=== PATIENT | female | born 1935 | race Caucasian/White ===

== ENCOUNTER 2022-08-19 10:31 | Day surgery (SDC) | payer OTHER ==
[2022-08-19] MEDS ORDERED: IRON SUCROSE INJECTION 200 MG in SODIUM CHLORIDE 100 ML IVPB ONE (11:00)
[2022-08-19 12:29] VITALS: BP 135/49; PULSE 67; RESP 18; TEMP 97.9
== END 2022-08-19 12:29 | disposition home or self-care (01) ==
LOC: FM/S 10:31 → FINFUSION 10:31
PROVIDERS: ATTEND Family Medicine
PROC: 3E033GC Introduction of Other Therapeutic Substance into Peripheral Vein, Percutaneous Approach (ICD-10-PCS; principal; 2022-08-19)
DX: D50.9 Iron deficiency anemia, unspecified (principal)
CPT/HCPCS: 96365; J1756

== ENCOUNTER 2022-08-26 09:33 | Day surgery (SDC) | payer OTHER ==
[2022-08-26] MEDS ORDERED: IRON SUCROSE INJECTION 200 MG in SODIUM CHLORIDE 100 ML IVPB ONE (10:00)
[2022-08-26 10:15] VITALS: RESP 18; TEMP 98.1
[2022-08-26 10:53] VITALS: BP 117/47; PULSE 52
== END 2022-08-26 10:53 | disposition home or self-care (01) ==
LOC: FINFUSION 09:33 → FM/S 09:33 → FINFUSION 10:53
PROVIDERS: ATTEND Family Medicine
PROC: 3E033GC Introduction of Other Therapeutic Substance into Peripheral Vein, Percutaneous Approach (ICD-10-PCS; principal; 2022-08-26)
DX: D50.9 Iron deficiency anemia, unspecified (principal)
CPT/HCPCS: 96365; J1756

== ENCOUNTER 2022-09-02 10:38 | Day surgery (SDC) | payer OTHER ==
[2022-09-02] MEDS ORDERED: IRON SUCROSE INJECTION 200 MG in SODIUM CHLORIDE 100 ML IVPB ONE (11:15)
[2022-09-02 11:43] VITALS: RESP 18; TEMP 98.3
[2022-09-02 12:23] VITALS: BP 122/55; PULSE 60
== END 2022-09-02 12:55 | disposition home or self-care (01) ==
LOC: FINFUSION 10:38 → FM/S 10:44 → FINFUSION 12:55
PROVIDERS: ATTEND Family Medicine
PROC: 3E033GC Introduction of Other Therapeutic Substance into Peripheral Vein, Percutaneous Approach (ICD-10-PCS; principal; 2022-09-02)
DX: D50.9 Iron deficiency anemia, unspecified (principal)
CPT/HCPCS: 96365; J1756

== ENCOUNTER 2022-09-09 09:06 | Day surgery (SDC) | payer OTHER ==
[2022-09-09] MEDS ORDERED: IRON SUCROSE INJECTION 200 MG in SODIUM CHLORIDE 100 ML IVPB ONE (09:30)
[2022-09-09 11:42] VITALS: BP 140/60; PULSE 68; RESP 18; TEMP 97.7
== END 2022-09-09 12:23 | disposition home or self-care (01) ==
LOC: FINFUSION 09:06 → FM/S 09:06 → FINFUSION 12:23
PROVIDERS: ATTEND Family Medicine
PROC: 3E033GC Introduction of Other Therapeutic Substance into Peripheral Vein, Percutaneous Approach (ICD-10-PCS; principal; 2022-09-09)
DX: D50.9 Iron deficiency anemia, unspecified (principal)
CPT/HCPCS: 96365; J1756

== ENCOUNTER 2022-09-16 10:55 | Day surgery (SDC) | payer OTHER ==
[2022-09-16] MEDS ORDERED: IRON SUCROSE INJECTION 200 MG in SODIUM CHLORIDE 100 ML IVPB ONE (11:30)
[2022-09-16 12:17] VITALS: RESP 18; TEMP 98.7
[2022-09-16 12:57] VITALS: BP 132/54; PULSE 55
== END 2022-09-16 12:57 | disposition home or self-care (01) ==
LOC: FINFUSION 10:55 → FM/S 10:56 → FINFUSION 12:57
PROVIDERS: ATTEND Family Medicine
PROC: 3E033GC Introduction of Other Therapeutic Substance into Peripheral Vein, Percutaneous Approach (ICD-10-PCS; principal; 2022-09-16)
DX: D50.9 Iron deficiency anemia, unspecified (principal)
CPT/HCPCS: 96365; J1756